=== PATIENT | male | born 2000 | race Asian ===

== ENCOUNTER 2021-03-27 05:25 | Inpatient (IN) | payer OTHER ==
[2021-03-27] MEDS ORDERED: VANCOMYCIN 1 GM in D5W (PRE-DOCKED) 1,000 MG/250 ML IVPB ONE (05:41)
[2021-03-27] MEDS ORDERED: PIPERACILLIN/TAZOB 4.5 GM 4.5 GM in DEXTROSE 5%-WATER 100 ML IVPB ONE (05:42)
[2021-03-27] MEDS ORDERED: SODIUM CHLORIDE 1,000 ML IV STA (05:44)
[2021-03-27] MEDS ORDERED: ACETAMINOPHEN 1000 MG/100 ML VIAL (NON FORMULARY) IVPB ONE (05:44)
[2021-03-27] MEDS ORDERED: PIPERACILLIN/TAZOB 4.5 GM 4.5 GM/100 ML BAG IVPB ONE (05:53)
[2021-03-27 06:10] LABS: BASO % 0.1 % (0-2.0); HEMATOCRIT 48.8 % (35.4-49); HEMOGLOBIN 16.9 GM/dL (11.7-16.9); LYMPH % 12.2 % (8-40); MCH 29.8 pg (25.7-33.7); MCHC 34.7 g/dl (32.0-35.9); MEAN PLT VOLUME 9.4 fl (7.5-11.1); MONO % 4.9 % (3.8-10.2); NEUT % 82.8 % (42.8-82.8); PLATELET COUNT 378 K/MM3 (134-434); RBC 5.67 M/mm3 (4.00-5.60); RDW 12.8 % (11.9-15.9); WHITE BLOOD COUNT 18.2 K/mm3 (4.0-10.0)
[2021-03-27 06:20] LABS: INR 1.08 (0.83-1.09); PROTHROMBIN TIME (PATIENT) 13.3 SEC (9.7-13.0)
[2021-03-27 06:23] LABS: ACTIVATED PTT 27.4 SECONDS (25.2-36.5)
[2021-03-27 06:29] LABS: CHLORIDE 97 mmol/L (98-107); SODIUM 135 mmol/L (136-145)
[2021-03-27 06:31] LABS: ALBUMIN 5.4 g/dl (3.4-5.0); ANION GAP 14 MMOL/L (8-16); BLOOD UREA NITROGEN 19.8 mg/dL (7-18); CALCIUM 10.8 mg/dL (8.5-10.1); CO2 24 mmol/L (21-32); GLUCOSE,RANDOM 92 mg/dL (74-106)
[2021-03-27 06:35] LABS: CREATININE 1.2 mg/dL (0.55-1.3); SGOT/AST 22 U/L (15-37); SGPT/ALT 45 U/L (13-61)
[2021-03-27 06:37] LABS: ALK PHOS 81 U/L (45-117); BILIRUBIN,TOTAL 0.8 mg/dL (0.2-1); TOT PROT 9.1 g/dl (6.4-8.2)
[2021-03-27] MEDS ORDERED: diazePAM CARPU-JECT 10 MG/2 ML DISP.SYRIN IVPUSH ONE ×2 (07:23→09:45)
[2021-03-27] MEDS ORDERED: LACTATED RINGERS SOLUTION 1,000 ML IV STA (07:23)
[2021-03-27] MEDS ORDERED: diazePAM CARPU-JECT 10 MG/2 ML DISP.SYRIN ONE ×2 (07:32→09:59)
[2021-03-27] MEDS ORDERED: LACTATED RINGERS SOLUTION 1000 ML INFUS.BAG IV ONE (09:44)
[2021-03-27] MEDS ORDERED: KETOROLAC TROMETHAMINE 15 MG/ML VIAL IVPUSH ONE (09:47)
[2021-03-27 09:54] LABS: EPI CELLS 20 /uL (0-25.1); HYALINE CASTS 3 /uL (0-3.1); PH,URINE 6.5 (5.0-8.0); URINE APPEARANCE CLEAR; URINE BACTERIA 19 /uL (0-1359); URINE BILIRUBIN NEGATIVE (NEGATIVE); URINE COLOR YELLOW; URINE GLUCOSE (UA) NEGATIVE (NEGATIVE); URINE KETONE 1+ (NEGATIVE); URINE LEUK ESTERASE 1+ (NEGATIVE); URINE NITRITE NEGATIVE (NEGATIVE); URINE PROTEIN 1+ (NEGATIVE); URINE RBC 29 /uL (0-23.9); URINE UROBILINOGEN 0.2 mg/dL (0.2-1.0); URINE WBC 53 /uL (0-25.8)
[2021-03-27] MEDS ORDERED: KETOROLAC TROMETHAMINE 15 MG/ML VIAL ONE (10:01)
[2021-03-27 10:05] LABS: METHADONE, UR NEGATIVE ng/ml (CUTOFF=300); PHENCYCLIDINE,URINE NEGATIVE ng/ml (CUTOFF=25)
[2021-03-27 10:06] LABS: COCAINE, UR NEGATIVE ng/ml (CUTOFF=300); URINE BARBITURATES NEGATIVE ng/ml (CUTOFF=200)
[2021-03-27 10:11] LABS: URINE AMPHETAMINES NEGATIVE ng/ml (CUTOFF=500)
[2021-03-27 10:30] LABS: OPIATES, URI NEGATIVE ng/ml (CUTOFF=300); URINE BENZODIAZEPINES POSITIVE ng/ml (CUTOFF=200)
[2021-03-27] MEDS ORDERED: cloNIDine HCL 0.1 MG TABLET PO ONE (10:35)
[2021-03-27] MEDS ORDERED: cloNIDine HCL 0.1 MG TABLET ONE (10:42)
[2021-03-27] MEDS ORDERED: METHADONE HCL 10 MG TABLET ONE (13:51)
[2021-03-27] MEDS ORDERED: METHADONE HCL 10 MG TABLET PO ONE (14:00)
[2021-03-27] MEDS: SODIUM CHLORIDE 1,000 ML IV SCH (14:16)
[2021-03-27] MEDS ORDERED: CEFTRIAXONE 1 GM/50 ML BAG ONE (14:59)
[2021-03-27] MEDS: CEFTRIAXONE 1 GM in DEXTROSE 5%-WATER - 50 ML IVPB SCH (15:03)
[2021-03-27 18:06] VITALS: BMI 19.8
[2021-03-27] MEDS: NICOTINE 21 MG/24 HOURS TOPICAL PATCH TD SCH (20:22)
[2021-03-27] MEDS: cloNIDine HCL 0.1 MG TABLET PO PRN (20:27)
[2021-03-27] MEDS ORDERED: diazePAM 5 MG TABLET PO ONE (21:00)
[2021-03-27] MEDS: diazePAM 5 MG TABLET PO SCH (22:08)
[2021-03-28] MEDS: SODIUM CHLORIDE 1,000 ML IV SCH ×2 (00:59→13:24)
[2021-03-28] MEDS: cloNIDine HCL 0.1 MG TABLET PO PRN ×2 (02:16→10:08)
[2021-03-28] MEDS: diazePAM 5 MG TABLET PO SCH ×4 (04:04→23:48)
[2021-03-28] MEDS: diazePAM 5 MG TABLET PO PRN ×2 (07:20→20:32)
[2021-03-28 07:33] LABS: BASO % 2.1 % (0-2.0); EOS % 2.5 % (0-4.5); HEMATOCRIT 36.4 % (35.4-49); HEMOGLOBIN 12.6 GM/dL (11.7-16.9); LYMPH % 36.3 % (8-40); MCH 30.3 pg (25.7-33.7); MCHC 34.5 g/dl (32.0-35.9); MEAN CELL VOLUME 87.9 fl (80-96); MEAN PLT VOLUME 8.5 fl (7.5-11.1); MONO % 9.3 % (3.8-10.2); NEUT % 49.8 % (42.8-82.8); PLATELET COUNT 175 K/MM3 (134-434); RBC 4.14 M/mm3 (4.00-5.60); RDW 12.3 % (11.9-15.9); WHITE BLOOD COUNT 5.7 K/mm3 (4.0-10.0)
[2021-03-28 08:10] LABS: BLOOD UREA NITROGEN 14.2 mg/dL (7-18); MAGNESIUM 2.3 mg/dL (1.8-2.4)
[2021-03-28 08:12] LABS: CREATININE 0.8 mg/dL (0.55-1.3)
[2021-03-28 08:13] LABS: BILIRUBIN,TOTAL 0.8 mg/dL (0.2-1); PHOSPHOROUS 3.2 mg/dL (2.5-4.9)
[2021-03-28 08:43] LABS: ALBUMIN 3.3 g/dl (3.4-5.0); CALCIUM 8.5 mg/dL (8.5-10.1); TOT PROT 5.8 g/dl (6.4-8.2)
[2021-03-28] MEDS ORDERED: DEXTROSE 5%-WATER - 50 ML IVPB ONE (09:10)
[2021-03-28] MEDS ORDERED: cefTRIAXone SODIUM 1 GM VIAL ONE (09:10)
[2021-03-28] MEDS: NICOTINE 21 MG/24 HOURS TOPICAL PATCH TD SCH (09:29)
[2021-03-28] MEDS: ENOXAPARIN NA (PORCINE) 40 MG/0.4 ML DISP.SYRIN SQ SCH (09:29)
[2021-03-28] MEDS: CEFTRIAXONE 1 GM in DEXTROSE 5%-WATER - 50 ML IVPB SCH (09:29)
[2021-03-28] MEDS ORDERED: METHADONE 20 MG, METHADONE 5 MG PO ONE (10:00)
[2021-03-28] MEDS ORDERED: TRIMETHOBENZAMIDE HCL 200MG/2ML INJ IM ONE (10:30)
[2021-03-28] MEDS: CHOLECALCIFEROL (VIT D3) 5000 UNITS (125 MCG) CAP PO SCH (11:34)
[2021-03-28] MEDS: MULTIVITAMINS THER W-MINERALS COMBO TABLET (FP) PO SCH (11:35)
[2021-03-28] MEDS: THIAMINE HCL 100 MG TABLET (FP) PO SCH ×2 (11:35→21:15)
[2021-03-28] MEDS ORDERED: PT OWN MED DRAWER 7, Y5N ONE ×2 (20:25→22:19)
[2021-03-29] MEDS ORDERED: diazePAM 5 MG TABLET PO SCH (06:00)
[2021-03-29] MEDS: SODIUM CHLORIDE 1,000 ML IV SCH (06:52)
[2021-03-29 07:25] LABS: HEMATOCRIT 38.3 % (35.4-49); HEMOGLOBIN 13.2 GM/dL (11.7-16.9); MCH 30.7 pg (25.7-33.7); MCHC 34.6 g/dl (32.0-35.9); MEAN CELL VOLUME 88.7 fl (80-96); MEAN PLT VOLUME 8.8 fl (7.5-11.1); PLATELET COUNT 157 K/MM3 (134-434); RBC 4.32 M/mm3 (4.00-5.60); RDW 12.2 % (11.9-15.9); WHITE BLOOD COUNT 5.9 K/mm3 (4.0-10.0)
[2021-03-29 07:47] LABS: ALBUMIN 3.7 g/dl (3.4-5.0); CALCIUM 8.6 mg/dL (8.5-10.1)
[2021-03-29 07:50] LABS: CREATININE 0.8 mg/dL (0.55-1.3)
[2021-03-29 07:51] LABS: PHOSPHOROUS 3.4 mg/dL (2.5-4.9)
[2021-03-29 07:52] LABS: BILIRUBIN,TOTAL 0.5 mg/dL (0.2-1); TOT PROT 6.4 g/dl (6.4-8.2)
[2021-03-29] MEDS ORDERED: AZITHROMYCIN 500 MG TABLET PO ONE (09:13)
[2021-03-29] MEDS ORDERED: METHADONE HCL 10 MG TABLET PO ONE (10:00)
[2021-03-29] MEDS: CHOLECALCIFEROL (VIT D3) 5000 UNITS (125 MCG) CAP PO SCH (10:50)
[2021-03-29] MEDS: MULTIVITAMINS THER W-MINERALS COMBO TABLET (FP) PO SCH (10:50)
[2021-03-29] MEDS: THIAMINE HCL 100 MG TABLET (FP) PO SCH (10:50)
[2021-03-29] MEDS: NICOTINE 21 MG/24 HOURS TOPICAL PATCH TD SCH (10:51)
[2021-03-29] MEDS: ENOXAPARIN NA (PORCINE) 40 MG/0.4 ML DISP.SYRIN SQ SCH (10:51)
[2021-03-29 13:48] VITALS: BP 128/67; PULSE 74; TEMP 98.2
[2021-03-30] MEDS ORDERED: diazePAM 5 MG TABLET PO SCH (06:00)
[2021-03-30] MEDS ORDERED: METHADONE 10 MG, METHADONE 5 MG PO ONE (10:00)
[2021-03-31] MEDS ORDERED: diazePAM 5 MG TABLET PO ONE (06:00)
[2021-03-31] MEDS ORDERED: METHADONE HCL 10 MG TABLET PO ONE (10:00)
[2021-04-01] MEDS ORDERED: METHADONE HCL 5 MG TABLET PO ONE (06:00)
== END 2021-03-29 16:34 | disposition home or self-care (01) | DRG 773 ==
LOC: JER 05:25 → JERBED 10:52 → J7W 17:41
PROVIDERS: ADMIT Internal Medicine; ATTEND Student in an Organized Health Care Education/Training Program
DX: F13.130 Sedative, hypnotic or anxiolytic abuse with withdrawal, uncomplicated (principal); F11.13 Opioid abuse with withdrawal; K92.0 Hematemesis; E83.52 Hypercalcemia; F41.9 Anxiety disorder, unspecified; R50.9 Fever, unspecified; F19.10 Other psychoactive substance abuse, uncomplicated; A74.9 Chlamydial infection, unspecified; F12.10 Cannabis abuse, uncomplicated; A08.4 Viral intestinal infection, unspecified
CPT/HCPCS: 36415; 71045-TC-FY; 71260-TC; 74177-TC; 80053; 80307; 81003; 82306; 83605; 83615; 83735; 83970; 84100; 84443; 84484; 85025; 85027; 85610; 85730; 87040; 87086; 87491; 87591; 87804; 93005; 93010; 99285-25; C9803; J0131; J0735; Q9967; U0003; U0005